=== PATIENT | female | born 1950 | race Caucasian/White ===

== ENCOUNTER 2023-03-09 10:55 | Outpatient (REF) | payer MEDICARE, SELFPAY ==
[2023-03-10 09:19] LABS: HIV AB/AG Nonreactive (Nonreactive); HIV Num 1 0.07 S/CO (0.00-0.99)
== END 2023-03-09 10:56 | disposition home or self-care (01) ==
LOC: HO.LNP 10:55
PROVIDERS: Visit Provider Specialist
DX: Z77.21 Contact with and (suspected) exposure to potentially hazardous body fluids (principal)
CPT/HCPCS: 87389

== ENCOUNTER 2023-09-22 14:49 | Outpatient (REF) | payer MEDICARE, SELFPAY ==
[2023-09-22 15:06] LABS: MANUAL DIFF FLAG NO
[2023-09-22 15:15] LABS: Basophils Percent Auto 0.6 % (0-2); Eosinophils Absolute Auto 0.1 X10*3/uL (0.0-0.4); Eosinophils Percent Auto 2.5 % (0-4); Hematocrit 41.7 % (37.0-47.0); Hemoglobin 13.7 g/dl (12.0-16.0); Imm Gran Abs Auto 0.01 X10*3/uL (0.00-0.03); Imm Gran Pct Auto 0.2 % (0.0-0.4); Lymphocytes Absolute Auto 1.7 X10*3/uL (1.2-4.9); Lymphocytes Percent Auto 32.1 % (20-40); Mean Corpuscular HGB Conc 32.9 g/dl (31.0-35.0); Mean Corpuscular Hemoglobin 29.8 pg (27.0-33.0); Mean Corpuscular Volume 90.8 fL (80.0-98.0); Mean Platelet Volume 9.7 fL (9.4-12.3); Monocytes Absolute Auto 0.3 X10*3/uL (0.1-1.2); Monocytes Percent Auto 5.5 % (2-11); Neutrophils Absolute Auto 3.1 x10*3/uL (2.0-8.3); Neutrophils Percent Auto 59.1 % (45-73); Platelet Count 192 X10*3/uL (160-400); Red Blood Count 4.59 X10*6/uL (4.20-5.50); Red Cell Distribution Width 13.3 % (11.0-16.0); White Blood Count 5.3 X10*3/uL (4.8-10.8)
[2023-09-22 15:52] LABS: Anion Gap 11 (12-20); Blood Urea Nitrogen 21 mg/dL (9-16); Calcium 9.9 mg/dL (8.4-10.2); Carbon Dioxide 32 mmol/L (22-29); Chloride 101 mmol/L (96-108); Estimated Glomerular Filt Rate > 60; Glucose Random 96 mg/dL (60-115); Potassium 4.2 mmol/L (3.3-5.1); Sodium 140 mmol/L (135-145)
[2023-09-22 16:03] LABS: TSH reflex Free T4 2.15 uIU/mL (0.32-4.0)
[2023-09-22 16:14] LABS: Folate 14.2 ng/mL (> or = 4.0); Vitamin B12 1164 pg/mL (200-900)
== END 2023-09-22 14:50 | disposition home or self-care (01) ==
LOC: HO.LAB 14:49
PROVIDERS: PCP Internal Medicine; Visit Provider Psychiatry & Neurology Neurology
DX: G31.84 Mild cognitive impairment of uncertain or unknown etiology (principal)
CPT/HCPCS: 36415; 80048; 82607; 82746; 84443; 85025

== ENCOUNTER 2023-10-28 13:24 | Outpatient (REF) | payer MEDICARE, SELFPAY ==
--- NOTE | ~2023-10-28 | MR_ITS ---
EXAMINATION: MR BRAIN WITHOUT CONTRAST CLINICAL INFORMATION: Mild cognitive impairment COMPARISON: None TECHNIQUE: Multiplanar multisequence MR imaging of the brain was obtained without intravenous contrast. FINDINGS: There is no acute infarct on diffusion-weighted imaging. There is no intracranial hemorrhage on iron-sensitive imaging. No extra-axial collection or mass effect/herniation. Patchy periventricular and deep white matter T2 FLAIR hyperintensities consistent with mild to moderate underlying microangiopathy. Chronic lacunar infarcts involving the nella. Etat crible appearance of the basal ganglia. There is asymmetric prominence of the sulci involving the right parietal lobe and widening of the parieto-occipital fissure with questionable disproportionate right parietal lobe volume loss. No hydrocephalus. Moderate generalized volume loss with commensurate sulcal and ventricular prominence. Bilateral choroid plexus and the granuloma within the lateral ventricular atria The major flow voids at the skull base are preserved. The midline structures are normal. The cerebellar tonsils are normally positioned. The craniocervical junction is normal. Marrow signal is within normal limits. The visualized soft tissues are without significant abnormality. No signal abnormality within the paranasal sinuses or within the mastoid air cells. MR/MR head/brain wo con IMPRESSION: 1. Moderate generalized cerebral volume loss, mild to moderate chronic microangiopathy, and chronic lacunar infarcts in the nella 2. Asymmetric prominence of the right parietal sulci with questionable corresponding disproportionate right parietal lobe volume loss. Electronically signed by: Neville Madrigal MD 11/10/2023 06:48 PM EDT
== END 2023-10-28 13:25 | disposition home or self-care (01) ==
LOC: HO.MRI 13:24
PROVIDERS: PCP Internal Medicine; Visit Provider Psychiatry & Neurology Neurology
DX: G31.84 Mild cognitive impairment of uncertain or unknown etiology (principal)
CPT/HCPCS: 70551

== ENCOUNTER 2023-10-29 08:47 | Day surgery (SDC) | payer MEDICARE, SELFPAY ==
--- NOTE | ~2023-10-29 | FL_ITS ---
FLUOROSCOPIC GUIDED LUMBAR PUNCTURE INDICATION: Cognitive disorder; Alzheimer's. TECHNIQUE: Risks and benefits and possible complications were discussed with the patient and the consent form was signed. Patient was placed prone on the fluoroscopy table. The back was prepped and draped in routine sterile fashion. Betadine was used as a skin antiseptic. Utilizing fluoroscopic guidance, the L3-4 interlaminar space was accessed with a 22 gauge Marcelle spinal needle and clear CSF fluid obtained. 4 cc of fluid was sent for analysis. The needle was removed without immediate complications. Total fluoroscopy time: 1 minute 15 seconds FL/FL guided lumbar puncture LP IMPRESSION: Successful diagnostic fluoroscopic lumbar puncture This procedure was performed by Neville Levine PA-C and supervised by Dr. Blair. Electronically signed by: Christopher Blair MD 10/29/2023 04:18 PM EDT
[2023-10-29 09:01] VITALS: BMI 22.5
[2023-10-29 09:59] VITALS: BP 141/77; PULSE 76; RESP 18; TEMP 36.8; O2SAT 100
[2023-10-29 12:51] VITALS: BP 152/85; PULSE 61; RESP 18; TEMP 36.3; O2SAT 100
== END 2023-10-29 12:55 | disposition home or self-care (01) ==
LOC: HO.SSS 08:48
PROVIDERS: Physician Assistant Surgical; PCP Internal Medicine; Visit Provider Psychiatry & Neurology Neurology
PROC: 009U3ZZ Drainage of Spinal Canal, Percutaneous Approach (ICD-10-PCS; CPT 62270; principal; 2023-10-29 11:00)
DX: G31.84 Mild cognitive impairment of uncertain or unknown etiology (principal); Z82.0 Family history of epilepsy and other diseases of the nervous system; Z85.3 Personal history of malignant neoplasm of breast; E03.9 Hypothyroidism, unspecified; Z79.899 Other long term (current) drug therapy; Z88.0 Allergy status to penicillin; Z87.891 Personal history of nicotine dependence; Z98.890 Other specified postprocedural states
CPT/HCPCS: 62328; 83520; Q9967

== ENCOUNTER → 2023-10-29 11:25 | Outpatient (BNV) | payer MEDICARE, SELFPAY | PROVIDERS: PCP Internal Medicine; Visit Provider Radiology Diagnostic Radiology | DX: G31.84 Mild cognitive impairment of uncertain or unknown etiology (principal) | CPT/HCPCS: 62328 ==

== ENCOUNTER 2023-11-25 10:05 | Outpatient (REF) | payer MEDICARE, SELFPAY | END 2023-11-25 10:06 | disposition home or self-care (01) | LOC: HO.LAB 10:05 | PROVIDERS: PCP Internal Medicine; Visit Provider Psychiatry & Neurology Neurology | DX: G30.9 Alzheimer's disease, unspecified (principal) | CPT/HCPCS: 82542 ==

== ENCOUNTER 2024-05-27 09:33 | Outpatient (REF) | payer MEDICARE, SELFPAY ==
--- NOTE | ~2024-05-27 | MR_ITS ---
EXAMINATION: MR BRAIN WITHOUT CONTRAST CLINICAL INFORMATION: Alzheimer's disease. COMPARISON: 10/28/2023. TECHNIQUE: MRI of the brain was obtained using routine sequences without contrast. Examination performed on a 1.5 Leonie Siemens high-field scanner. FINDINGS: There is no diffusion restriction. There is no intracranial hemorrhage, acute infarction, mass effect, or edema. There is redemonstration of bifrontal, biparietal, and to a lesser degree temporal lobe atrophy. This appears most significant involving the right posterior frontotemporal region, and involving the right parieto-occipital fissure. Commensurate prominence of the lateral and third ventricles. There are bilateral choroid plexus xanthogranulomas. No significant posterior fossa atrophy. No shift of midline. No significant abnormal hemosiderin deposition is identified. There are old lacunar type infarcts within the central and left nella, and the left medial thalamus. Old lacunar infarct in the right mid brambila radiata. There are a scattered punctate and minimally confluent foci of white matter T2 hyperintensity in the periventricular, subcortical, and hemispheric deep white matter. These foci are nonspecific but most likely relate statistically to moderate small vessel ischemic changes. Midline structures appear normally formed. Moderate thinning of the corpus callosum. The pituitary gland appears normal. Posterior fossa structures appear normal. Cerebellar tonsils are appropriately located. Major flow voids are preserved within the skull base. The globes and orbital contents demonstrate no abnormalities. There are bilateral lens replacements. Paranasal sinuses are clear bilaterally. The mastoids and tympanic cavities are normally aerated. Extracranial soft tissues demonstrate no abnormalities. No suspicious bone marrow changes are evident. Atlantoaxial joint is demonstrates mild to moderate degenerative change. MR/MR head/brain wo con IMPRESSION: 1. No evidence of intracranial hemorrhage, acute infarction, mass effect, or edema. 2. There are moderate stable changes of small vessel ischemia, and old lacunar type infarctions within the nella, left thalamus, and right mid brambila radiata. 3. Moderate generalized cerebral volume loss, with more significant bifrontal and biparietal atrophy. This appears unchanged. Electronically signed by: Chrsitopher Blair MD 05/29/2024 01:05 PM EDT
== END 2024-05-27 09:34 | disposition home or self-care (01) ==
LOC: HO.MRI 09:33
PROVIDERS: PCP Internal Medicine; Visit Provider Psychiatry & Neurology Neurology
DX: G30.9 Alzheimer's disease, unspecified (principal)
CPT/HCPCS: 70551

== ENCOUNTER → 2024-05-27 09:48 | Outpatient (BNV) | payer MEDICARE, SELFPAY | PROVIDERS: PCP Internal Medicine; Visit Provider Radiology Diagnostic Radiology | DX: I67.82 Cerebral ischemia (principal); I63.81 Other cerebral infarction due to occlusion or stenosis of small artery; G31.89 Other specified degenerative diseases of nervous system | CPT/HCPCS: 70551 ==

== ENCOUNTER 2024-06-22 18:40 | Outpatient (REF) | payer MEDICARE, SELFPAY ==
--- NOTE | ~2024-06-22 | MR_ITS ---
CLINICAL HISTORY: ALZHEIMER DISEASE MR Brain without gadolinium Comparison: MR/SR - MR HEAD/BRAIN WO CON - 05/27/24 09:48 EDT MR/SR - MR HEAD/BRAIN WO CON - 10/28/23 13:33 EDT Findings: No restricted diffusion. Volume loss most prominent in the temporal lobes. No intra-axial mass or hemorrhage. Periventricular and subcortical T2 white matter hyperintensities likely chronic small-vessel ischemic changes. No midline shift. No hydrocephalus. Vascular flow voids are intact. Orbital contents are unremarkable. The sinuses and mastoid air cells are clear. No focal bone lesion. IMPRESSION: 1. No acute intracranial findings. This document has been electronically signed by: Shania Barnes MD on 06/22/2024 20:44:42
== END 2024-06-22 18:41 | disposition home or self-care (01) ==
LOC: HO.MRI 18:40
PROVIDERS: PCP Internal Medicine; Visit Provider Psychiatry & Neurology Neurology
DX: G30.9 Alzheimer's disease, unspecified (principal)
CPT/HCPCS: 70551

== ENCOUNTER → 2024-06-22 18:52 | Outpatient (BNV) | payer MEDICARE, SELFPAY | PROVIDERS: PCP Internal Medicine; Visit Provider Radiology Diagnostic Radiology | DX: G30.9 Alzheimer's disease, unspecified (principal) | CPT/HCPCS: 70551 ==

== ENCOUNTER 2024-07-19 09:45 | Outpatient (REF) | payer MEDICARE, SELFPAY ==
--- NOTE | ~2024-07-19 | MR_ITS ---
CLINICAL HISTORY: ALZHEIMERS DZ MR Brain without gadolinium Comparison: MR - MR HEAD/BRAIN WO CON - 06/22/24 18:51 EDT Findings: No restricted diffusion. No intra-axial mass or hemorrhage. No midline shift. No hydrocephalus. Vascular flow voids are intact. Diffuse volume loss. Confluent T2 signal prolongation in the periventricular white matter. The orbits are normal. The sinuses and mastoid air cells are clear. No focal bone lesion. IMPRESSION: No acute findings. Diffuse volume loss and moderate white matter disease. This document has been electronically signed by: Herminio Fraga MD on 07/19/2024 14:26:13
--- OUTSIDE RECORDS SUMMARY | 2024-07-19 10:18 | XMS_ITS | Clinical Summary ---
Author Organization [facility] [address] [place] [address] [place] [phone] Phone Care Team Providers Care Ct Mri Technologist Name Role Phone Christa Lynch MD Primary Care Prov ider Allergies Active Allergy Reactions Criticality Noted Date Comments Penicillins 03/17/2006 Medications calcium carbonate 1,500 mg (600 mg elemental calcium) tablet 1 qd Acti ve cholecalciferol (VITAMIN D-3) 50 mcg (2,000 unit) capsule Take?by mouth. Active levothyroxine (SYNTHROID, LEVOTHROID) 75 mcg tablet Take 1 Tab by mouth daily. 04/17/2020 Active GRAPE SEED EXTRACT ORAL Take?by mouth. One tablet twice a day. Active docosahexaenoic acid/epa (FISH OIL ORAL) by Does not apply route. One capsule BID Active ASCORBIC ACID, VITAMIN C, ORAL Take?by mouth. Active vitamin B complex (VITAMINS B COMPLEX ORAL) Take?by mouth 2 Times Daily. Active multivitamin (MULTIPLE VITAMINS ORAL) Take?by mouth. Murray antioxidant?Take 4 tabs daily Active Active Problems Problem Noted Date Diagnosed Date Diagnosis unknown 03/17/2024 Overview (03/17/2024): Sprain and strain of unspecified site of hip and thigh Osteopenia 04/26/2019 Degenerative disc disease, lumbar 02/21/2018 Lumbar foraminal stenosis 02/21/2018 Lumbar radiculopathy 02/21/2018 Somatic dysfunction of pelvic region 11/04/2017 Strain of left hip 11/04/2017 Subclinical hypothyroidism 05/15/2014 Overview (03/17/2024): TSH 8.30, 05/14/2014. Sprain of sacroiliac ligament 07/10/2009 Low back pain 07/03/2009 Overview (03/17/2024): Sciatica x 1 years Immunizations Name Administration Dates Next Due Influenza Quadravalent, MDCK , 0.5ml, with preservative (Flucelvax) 6mo and older 10/29/2016 Influenza trivalent, 0.5mL ( Fluad) 65yo and older 10/21/2021,10/20/2018,11/19/2017 Influenza trivalent, 0.5mL, preservative free (Fluarix; FluLaval; Fluzone) ages 6mo and older (Afluria) 3 years and older 10/30/2015,11/23/2014,01/02/2014,12/20,02/04/2012,11/25/2009 Influenza, Unspecified 12/04/2020,10/05/2019 Moderna SARS-CoV-2 COVID-19, mRNA, LNP-S, preservative free 06/02/2021,12/06/2020 Pneumococcal conjugate 13 va lent (Prevnar 13, PCV13) 2mo and older 10/20/2018 Pneumococcal polysaccharide 23 valent (Pneumovax 23) 2yo and older 10/29/2016 Td Tetanus diptheria (Tdvax) 7yo and older 07/31/2020 Tdap Tetanus diptheria acell ular pertussis (Boostrix; Adacel) 7yo and older 07/03/2009 Zoster recombinant (Shingrix ) 19yo and older 08/07/2021,05/23/2021 Surgical History Surgery Date Site/Laterality Comments OTHER SURGICAL HISTORY PROCEDURE: ORAL SURGERY SINGLE TOOTH OTHER SURGICAL HISTORY PROCEDURE: CA DILATION & CURETTAGE DX&/THER NONOBSTETRIC OTHER SURGICAL HISTORY PROCEDURE: LAPAROSCOPY PROCEDURE NEC CHOLECYSTECTOMY PROCEDURE: CA CHOLECYSTECTOMY COLONOSCOPY 01/03/13 PROCEDURE: HISTORICAL COLONOSCOPY; COMMENT: normal; repeat in 5 yrs with 48 hour bowel prep OTHER SURGICAL HISTORY PROCEDURE: RADICAL REMOVAL OF BREAST; COMMENT: left breast 2011 OTHER SURGICAL HISTORY 12/07/13 PROCEDURE: MAMMOGRAM BREAST BIOPSY 10/2011 Left PROCEDURE: BX BREAST; PERC NEEDLE CORE W/IMAG GUID; COMMENT: DCIS OTHER SURGICAL HISTORY 2011 Left PROCEDURE: CA MASTECTOMY SIMPLE COMPLETE; COMMENT: DCIS Medical History Medical History Date Comments Absence of menstruation DX:Absen ce of menstruation Senile osteoporosis 2006 resolved 2007, now osteopenia, on Evista DX:Senile osteoporosis; COMMENT: T score -1.9, strong family history, on Fosamax Low back pain 07/03/2009 DX:Low back pain Osteoporosis 05/03/2009 DX:Osteoporosis Hx of breast cancer 05/23/2013 DX:Hx of kavya ast cancer H/O mammogram DX:H/O mammogram History of actinic keratoses DX: History of actinic keratoses Personal history of malignan t neoplasm of breast 10/15/2011 DX:Personal history of malignant neoplasm of breast; COMMENT: left breast ca Degenerative disc disease, lumbar 02/21/2018 DX:Degenerative disc disease , lumbar Family History Medical History Relation Name Comments Alzheimer's disease Brother 1 Hyperlipidemia Brother 2 Other: hearing impaired Daughter 1 Lung cancer Father Heart failure Maternal Grandfather Heart failure Maternal Grandmother Other cancer Maternal Grandmother stomach Mental illness Mother dx 62 paranoid schi zophrenia Other: lung disease Mother dx 62 Breast cancer Other mat great aunt Asthma Paternal Grandmother Other: lung disease Paternal Grandmother Breast cancer Sister 1 dx 57 Glaucoma Sister 2 Relation Name Status Comments Brother 1 Alive x3 Brother 2 Alive Daughter 1 Daughter 2 Alive Father Maternal Grandfather Maternal Grandmother Mother dx 62 Other mat great aunt Alive Paternal Grandfather Paternal Grandmother Sister 1 dx 57 Alive x2 Sister 2 Social History Tobacco Use Types Packs/Day Years Used Date Smoking Tobacco: Never Smokeless Tobacco: Never Alcohol Use Standard Drinks/Week Comments Yes 0 (1 standard drink = 0.6 oz pur e alcohol) Comments Unknown Sex and Gender Information Value Date Recorded Sex Assigned at Female 03/27/2024 3:45 PM EST Legal Sex Female 7:52 AM EST Gender Identity Female 03/27/2024 3:45 PM EST Sexual Orientation Straight 03/27/2024 3: 45 PM EST Obstetrics History Last Filed Vital Signs Vital Sign Reading Time Taken Comments Blood Pressure 128/85 07/23/2023 11:04 AM EDT Pulse 59 01/04/2023 9:52 AM EST Temperature - - Respiratory Rate - - Oxygen Saturation - - Inhaled Oxygen Concentration - - Weight 61.7 kg (136 lb) 07/23/2023 11:04 AM EDT Height 165.7 cm (5' 5.25 ) 07/23/2023 11:04 AM E DT Body Mass Index 22.46 07/23/2023 11:04 AM EDT Plan of Treatment Upcoming Encounters Date Type Department Care Team (Late st Contact Info) Description 09/01/2024 1:00 PM EDT Appointment [facility] Bone Density [address] [place] [phone] Health Maintenance Due Date Last Done Comments Colorectal Cancer Screening: Colonoscopy 01/24/2022 01/03/2013 Depression Screening 01/24/2022 Falls Risk Assessment 01/24/2022 Medicare Annual Wellness Visit 01/24/2022 Social Influencers of Health Screening 01/24/2022 COVID-19 Vaccine ( season) 2023 10/21/2021, 06/02/2021, 12/06/2020, Additional history exists Influenza Vaccine (Season Ended) 2024 10/21/2021, 12/04/2020, 10/05/2019, Additional history exists Breast Cancer Screening 06/09/2025 06/10/19 24, 06/10/2023, 05/29/2022, Additional history exists RSV Immunization Adult Patients (1 - 1-dose 75+ series) 2026 DTaP,Tdap,and Td Vaccines (3 - Td or Tdap) 07/31/2030 07/31/2020, 07/03/2009 Osteoporosis Screening (Bone Density Screening) 12/07/2033 12/08/2023, 12/08/2023, 05/12/2022, Additional history exists Hepatitis C Screening Completed 10/30/2015 Pneumococcal Vaccine: 50+ Years Completed 10/20/2018, 10/29/2016 Zoster Vaccines Completed 08/07/2021, 05/23/2021 HIB Vaccines Aged Out No longer eligi ble based on patient's age to complete this topic HPV Vaccines Aged Out No longer eligi ble based on patient's age to complete this topic Hepatitis A Vaccines Aged Out No long er eligible based on patient's age to complete this topic Hepatitis B Vaccines Aged Out No long er eligible based on patient's age to complete this topic IPV Vaccines Aged Out No longer eligi ble based on patient's age to complete this topic MMR Vaccines Aged Out No longer eligi ble based on patient's age to complete this topic Meningococcal ACWY Vaccine Aged Out N o longer eligible based on patient's age to complete this topic Meningococcal B Vaccine Aged Out No l onger eligible based on patient's age to complete this topic RSV Immunization Patients Under 20 months Aged Out No longer eligible based on patient's age to complete this topic Varicella Vaccines Aged Out No longer eligible based on patient's age to complete this topic Procedures Procedure Name Priority Date/Time Associated Diagnosis Comments EXTERNAL MRI REPORT 06/22/2024 EXTERNAL MRI REPORT 06/22/2024 EXTERNAL MRI REPORT 05/27/2024 EXTERNAL MRI REPORT 05/27/2024 DXA BONE DENSITY STUDY 1+ SITS AXIAL SKEL Routine 12/08/2023 2:22 PM EDT Age-related osteoporosis without current pathological fracture SCREENING MAMMOGRAPHY BI 2-VIEW BREAST INC CAD Routine 06/10/2023 10:02 AM EDT Encounter for screening mammogram for malignant neoplasm of breast HEPATITIS C SCREENING Routine 10/30/2015 COLONOSCOPY Routine 01/03/2013 from Last 3 Months or Most Recently Relevant to Health Maintenance Results * External MRI Report (06/22/2024) Only the most recent of4 resultswithin the time period is included. Anatomical Region Laterality Modality Magnetic Resonan ce us Provider [facility] IMG MRI PROCEDURES Final Result * DXA BONE DENSITY STUDY 1+ SITS AXIAL SKEL (12/08/2023 2:22 PM EDT) Anatomical Region Laterality Modality Bone Densitometr y 11/30/2023 10:0 4 AM EDT Narrative 12/08/2023 3:11 PM EDT BONE DENSITY ? Lumbar Spine T-score is -1.2 ?? (SD relative to 20-29 y/o adult) Z-score is +0.2 ??(SD relative to age matched peers) This is consistent with osteopenia by criteria defined by the WHO. Left Hip T-score is -2.2 Z-score is -0.2 This is consistent with osteopenia by criteria defined by the WHO. Comparison exam(s): significant increase in bone density of ??lumbar spine when compared to most recent bone density examination ?? Confidence level is +/-95%. Impression: Based on the World Health Organization criteria, Bibiana Easley should be classified as having osteopenia. [facility] Department of Internal Medicine recommends using National Osteoporosis Foundation (NOF) guidelines in treatment decisions related to osteoporosis. NOF guidelines suggest considering treatment for postmenopausal women and men aged 50 or older presenting with the following: History of hip or vertebral fracture. T-score less than or equal to -2.5 (DXA) at the femoral neck, total hip, or spine, after appropriate evaluation to exclude secondary causes. Low bone mass (T-score between -1.0 and -2.5 at the femoral neck or spine) AND a 10-year probability of a hip fracture greater than or equal to 3% OR a 10-year probability of a major osteoporosis-related fracture greater than or equal to 20% based on the [place]-adapted WHO algorithm Please note that all treatment decisions require clinical judgment and consideration of individual patient factors, including patient preferences, co-morbidities, previous drug use, risk factors not captured in the FRAX model (e.g., frailty, falls, vitamin D deficiency, increased bone turnover, interval significant decline in bone density) and possible under- or over-estimation of fracture risk by FRAX. Procedure Note Shalini Mccormick MD - 01/10/2024 BONE DENSITY Lumbar Spine T-score is -1.2 (SD relative to 20-29 y/o adult) Z-score is +0.2 (SD relative to age matched peers) This is consistent with osteopenia by criteria defined by the WHO. Left Hip T-score is -2.2 Z-score is -0.2 This is consistent with osteopenia by criteria defined by the WHO. Comparison exam(s): significant increase in bone density of lumbar spinewhen compared to most recent bone density examination Confidence level is +/-95%. Impression: Based on the World Health Organization criteria, Bibiana Easley should beclassified as having osteopenia. [facility] Department of Internal Medicine recommendsusing National Osteoporosis Foundation (NOF) guidelines in treatmentdecisions related to osteoporosis. NOF guidelines suggest consideringtreatment for postmenopausal women and men aged 50 or older presentingwith the following: History of hip or vertebral fracture. T-score less than or equal to -2.5 (DXA) at the femoral neck, total hip,or spine, after appropriate evaluation to exclude secondary causes. Low bone mass (T-score between -1.0 and -2.5 at the femoral neck or spine)AND a 10-year probability of a hip fracture greater than or equal to 3% ORa 10-year probability of a major osteoporosis-related fracture greaterthan or equal to 20% based on the [place]-adapted WHO algorithm Please note that all treatment decisions require clinical judgment andconsideration of individual patient factors, including patientpreferences, co-morbidities, previous drug use, risk factors not capturedin the FRAX model (e.g., frailty, falls, vitamin D deficiency, increasedbone turnover, interval significant decline in bone density) and possibleunder- or over-estimation of fracture risk by FRAX. us Christa Lynch MD IMG DXA PROCEDURES Final Result * SCREENING MAMMOGRAPHY BI 2-VIEW BREAST INC CAD (06/10/2023 10:02 AM EDT) Anatomical Region Laterality Modality Radiographic Fela ging 05/29/2022 10:2 4 AM EDT Narrative 06/10/2023 6:28 PM EDT This is a summary report. The complete report is available in the patient's medical record. If you cannot access the medical record, please contact the sending organization for a detailed fax or copy. Full field digital screening 2D C views and tomosynthesis right breast mammography, reviewed with CAD and compared to previous. ??Patient has a history of left mastectomy. ??The breast is composed of fatty and fibroglandular tissue. ??No suspicious mass, architectural distortion or suspicious calcifications are identified. IMPRESSION: : No mammographic evidence of malignancy. BIRADS 1-Negative; N. 5 year breast cancer risk assessment N/A Lifetime breast cancer risk assessment N/A Breast cancer risk category Breast cancer risk not assessed Procedure Note Shalini Mccormick MD - 10/04/2023 This is a summary report. The complete report is available in thepatient's medical record. If you cannot access the medical record, pleasecontact the sending organization for a detailed fax or copy. Full field digital screening 2D C views and tomosynthesis right breastmammography, reviewed with CAD and compared to previous. Patient has ahistory of left mastectomy. The breast is composed of fatty andfibroglandular tissue. No suspicious mass, architectural distortion orsuspicious calcifications are identified. IMPRESSION: : No mammographic evidence of malignancy. BIRADS 1-Negative; N. 5 year breast cancer risk assessment N/A Lifetime breast cancer risk assessment N/A Breast cancer risk category Breast cancer risk not assessed Result [facility] Mihaela Alfred MD IMG XR PROCEDURES Final Resu lt * Hepatitis C Screening (10/30/2015) Pathologist [facility] Hepatitis C Screening Abstracted Historical Provider HEALTH MAINTENANCE Final Result * Colonoscopy (01/03/2013) Pathologist [facility] Colonoscopy No interpreta tion,abstr acted Anatomical Region Laterality Modality Other Historical Provider HEALTH MAINTENANCE Final Result from Last 3 Months or Most Recently Relevant to Health Maintenance Insurance [employer] - [place] MEDICARE ADVANTAGE Care Teams Ct Mri Technologist Relationship Specialty Start Date End Date Christa Lynch MD [address] [place] [id number] PCP - General 03/29/10
== END 2024-07-19 09:46 | disposition home or self-care (01) ==
LOC: HO.MRI 09:45
PROVIDERS: PCP Internal Medicine; Visit Provider Registered Nurse
DX: G30.9 Alzheimer's disease, unspecified (principal)
CPT/HCPCS: 70551

== ENCOUNTER → 2024-07-19 10:14 | Outpatient (BNV) | payer MEDICARE, SELFPAY | PROVIDERS: PCP Internal Medicine; Visit Provider Radiology Vascular & Interventional Radiology | DX: G31.89 Other specified degenerative diseases of nervous system (principal); R90.82 White matter disease, unspecified | CPT/HCPCS: 70551 ==

== ENCOUNTER 2024-10-08 09:37 | Outpatient (REF) | payer MEDICARE, SELFPAY ==
--- NOTE | ~2024-10-08 | MR_ITS ---
CLINICAL HISTORY: G30.9 - Alzheimers disease, unspecified --- Additional Notes or Special Instructions: on Kisunla, prior to 7th infusion (scheduled 10 17 24) per protocol MR Brain without gadolinium Comparison: MR - MR HEAD/BRAIN WO CON - 07/19/24 10:13 EDT Findings: No restricted diffusion. No intra-axial mass or hemorrhage. Age appropriate cerebral volume loss. Patchy high FLAIR signal within the periventricular and subcortical white matter. Small chronic infarct within the left and central nella. No midline shift. No hydrocephalus. Vascular flow voids are intact. The orbits are normal. The sinuses and mastoid air cells are clear. No focal bone lesion. IMPRESSION: Unremarkable brain MRI. This document has been electronically signed by: Taz Walton MD on 10/09/2024 15:51:53
--- OUTSIDE RECORDS SUMMARY | 2024-10-08 09:48 | XMS_ITS ---
[facility] Name [facility] Organization [facility] Care Team Organization Name Specialty Phone Email Start Date End Da te [facility] PARESH HORNE Primary Care 12/23/2021 10/04/2023
== END 2024-10-08 09:38 | disposition home or self-care (01) ==
LOC: HO.MRI 09:37
PROVIDERS: Visit Provider Registered Nurse
DX: G30.9 Alzheimer's disease, unspecified (principal); F02.80 Dementia in other diseases classified elsewhere, unspecified severity, without behavioral disturbance, psychotic disturbance, mood disturbance, and anxiety
CPT/HCPCS: 70551

== ENCOUNTER → 2024-10-08 09:38 | Outpatient (BNV) | payer MEDICARE, SELFPAY | PROVIDERS: Visit Provider Radiology Diagnostic Radiology | DX: G30.9 Alzheimer's disease, unspecified (principal) | CPT/HCPCS: 70551 ==

== ENCOUNTER 2024-11-29 11:14 | Outpatient (AMB) | payer MEDICARE, SELFPAY ==
--- NOTE | 2024-11-29 11:50 | MHC.OFFVIS ---
Intake Visit Reasons: AD Allergies Penicillins Allergy (Verified 10/29/23 09:31) Rash HPI Comments Details: She has been feeling fine and has had 3 titrating 350mg , 700mg, 1050mg inhusions, and 5 full infusions at 1400 mg with last one on 11/14/24. Her 10/09/24 MRI stable and unremarkable.? No side effects or problems. Stable cognitive issues in last 4 months. Some days she feels very clear. Short term memory is still not good. No worsening. PET scan 11/20/24 showed extensive increased uptake in the cerebrum and cerebellum. No [facility] [place] score was provided on the report.? Less nervous. She first started? noticing some cognitive issues where she gets stuck for words since 2022, and some short-term memory problems and repeating herself. Her CAT scan shows mild frontotemporal and parietal atrophy and white matter disease involving the right nella, probably representing a small lacunar infarct. The ventricles are on also somewhat enlarged. She has no problems with her gait or bladder control problems. [facility] Medical History (Updated 11/29/24 @ 12:08 by Sukumar Craig MD) Hx of breast cancer History of hyperthyroidism Surgical History (Updated 10/29/23 @ 09:45 by Hilda Cantor RN) History of dental surgery Hx of cataract extraction History of reconstruction of left breast Hx of left mastectomy Hx laparoscopic cholecystectomy Hx of dilation and curettage Hx of colonoscopy Social History Are you a primary family day care worker to a significant other at home: No Do you presently have visiting nurse or other home services: No Patient Tobacco Use Status: Former Tobacco user Review of Systems Const Details: ?General/Constitutional:? Change in appetitedenies.? Chillsdenies.? Fatiguedenies.? Feverdenies.? Weight gaindenies.? Weight lossdenies. ???Sleep:? Difficulty getting to sleepdenies.? Difficulty maintaining sleepdenies?.? Urge to move legsdenies.? Teeth grindingdenies.? Shouting or Kicking during sleepdenies.? Abnormal behavior during sleepdenies.? Excessive sleepdenies.? Snoringdenies.? Daytime sleepinessdenies. ???Respiratory:? Shortness of breathdenies.? Chest paindenies.? Coughdenies. ???Cardiovascular:? Chest pain at restdenies.? Chest pain with exertiondenies.? Claudicationdenies.? Dizzinessdenies.? Fluid accumulation in the legsdenies.? Irregular heartbeatdenies.? Palpitationsdenies. ???Gastrointestinal:? Abdominal paindenies.? Constipationdenies.? Diarrheadenies.? Difficulty swallowingdenies.? Heartburndenies.? Nauseadenies.? Rectal bleedingdenies. ???Genitourinary:? Frequent urinationdenies.? Urgencydenies.? Incontinencedenies.? Erectile Dysfunctiondenies. ???Musculoskeletal:? Neck paindenies.? Back paindenies.? Muscle achesdenies.? Painful jointsdenies.? Sciaticadenies.? Weaknessdenies. ???Neurologic:? Difficulty swallowingdenies.? Balance difficultydenies.? Coordinationnormal.? Difficulty speakingdenies.? Dizzinessdenies.? Faintingdenies.? Gait abnormalitydenies.? Headachedenies.? Loss of strengthdenies.? Loss of use of extremitydenies.? Low back paindenies.? Memory lossadmits.? Seizuresdenies.? Ticsdenies.? Tingling/Numbnessdenies.? Transient loss of visiondenies.? Tremordenies. ???Psychiatric:? Anxietydenies.? Auditory/visual hallucinationsdenies.? Delusionsdenies.? Depressed mooddenies.? Stressorsdenies.? Substance abusedenies.? Suicidal thoughtsdenies. Physical Exam Neuro Other: Neurological: Abnormal neurological findings:??MMSE 27/30, MoCA 19/30 with MIS 6/15, Functional Activities Questionnaires 10.?Mental Status:??alert and oriented X 3 except day,?Normal attention,? and affect.?Cranial Nerves:??Pupils are equal, round and reactive to light. Fundoscopy shows normal disc bilaterally. External occular muscles are intact. Visual mendoza are full, no ptosis. Face is symmetrical, no facial weakness or droop. Facial sensations are normal. Tongue protrudes in midline. Palate elevates symmetrically. Shoulder shrugging is normal..?Motor Examination:??Normal muscle tone, bulk and strength,?No atrophy or fasciculations,?No drift of the extended upper extremities,?Deep tendon reflexes are 2+?,?Plantars are flexor?.?Straight Leg Raising:??90 degrees.?Sensory Exam:??Normal light touch, temperature, pinprick, vibration and joint-position sensations?,?Rhomberg sign is absent.?Coordination:??no ataxia,?no titubation,?ciiqvs-hl-[id number], cfkm-[id number] test and rapid alternating movements were normal.?Gait Exam:??Within normal limits.?Cerebellar Signs:??[id number]-[id number] and gfiw-[id number] is normal,?no dysdiadochokinesia?.?Extrapyramidal System:??No tremor, rigidity with normal facial expressions,?No bradykinesia, no bradyphrenia. Normal arm swing and posture. No propulsion or retropulsion.?Speech:??Normal,?no dysphasia or dysarthria..? Assessment & Plan Assessment & Plan (1) Alzheimers disease: Code(s): G30.9 - Alzheimer's disease, unspecified; F02.80 - Dementia in other diseases classified elsewhere, unspecified severity, without behavioral disturbance, psychotic disturbance, mood disturbance, and anxiety Category: Medical Plan Continue Kisunla fusions 1400 mg every month. Follow-up PET scan will be done in June Coding Level of Care Code Est Pt Level 5 (85244) Diagnoses Alzheimers disease G30.9; F02.80
== END 2024-11-29 12:19 | disposition home or self-care (01) ==
LOC: HO.HSM 11:15
PROVIDERS: PCP Internal Medicine; Referring Provider Internal Medicine; Visit Provider Psychiatry & Neurology Neurology
DX: G30.9 Alzheimer's disease, unspecified (principal); F02.80 Dementia in other diseases classified elsewhere, unspecified severity, without behavioral disturbance, psychotic disturbance, mood disturbance, and anxiety
CPT/HCPCS: 99214

== ENCOUNTER → 2024-11-29 11:14 | Outpatient (BNVA) | payer MEDICARE, SELFPAY | PROVIDERS: PCP Internal Medicine; Referring Provider Internal Medicine; Visit Provider Psychiatry & Neurology Neurology | DX: G30.9 Alzheimer's disease, unspecified (principal); F02.80 Dementia in other diseases classified elsewhere, unspecified severity, without behavioral disturbance, psychotic disturbance, mood disturbance, and anxiety | CPT/HCPCS: 99212 ==

== ENCOUNTER 2025-01-26 10:27 | Outpatient (AMB) | payer MEDICARE, SELFPAY ==
--- NOTE | 2025-01-26 10:33 | A.OFFVIS_ITS ---
Intake Visit Reasons: Repeat MMSE, MOCA Allergies Penicillins Allergy (Verified 10/29/23 09:31) Rash HPI Comments Details: 75-year-old woman with Alzheimer's dementia treated with Kisunla since 04/2024. She is here today for cognitive testing with MMSE and MoCA. [facility] Medical History (Updated 01/24/25 @ 10:01 by MUNA Gonzales) Hx of breast cancer History of hyperthyroidism Surgical History (Updated 10/29/23 @ 09:45 by Hilda Cantor RN) History of dental surgery Hx of cataract extraction History of reconstruction of left breast Hx of left mastectomy Hx laparoscopic cholecystectomy Hx of dilation and curettage Hx of colonoscopy Social History Are you a primary transitional care nurse to a significant other at home: No Do you presently have visiting nurse or other home services: No Patient Tobacco Use Status: Former Tobacco user Review of Systems Const Denies chills, Denies daytime sleepiness, Denies difficulty sleeping, Denies fatigue, Denies fever(s), Denies frequent falls, Denies headache(s), Denies increased appetite, Denies poor appetite, Denies snoring, Denies weakness, Denies weight gain and Denies weight loss Eyes Denies loss of vision ENT Denies vertigo, Denies dizziness, Denies headache(s) and Denies neck pain Card Denies chest pain at rest, Denies chest pain with activity, Denies syncope, Denies leg edema, Denies palpitations, Denies dyspnea and Denies dyspnea on exertion Resp Denies cough, Denies dyspnea, Denies dyspnea on exertion and Denies snoring GI Denies abdominal pain, Denies constipation, Denies heartburn, Denies diarrhea and Denies nausea Denies urinary frequency, Denies urinary incontinence and Denies urinary urgency Musc Denies abnormal gait, Denies back pain, Denies myalgias, Denies arthralgias, Denies neck pain, Denies numbness and Denies tingling Neuro Denies abnormal gait, Denies vertigo, Denies dizziness, Denies syncope, Denies frequent falls, Denies headache(s), Denies lack of coordination, Denies loss of vision, Reports memory loss, Denies numbness, Denies Other visual disturbances, Denies restless legs, Denies seizure-like activity, Denies tingling, Denies paresthesias, Denies tremor(s) and Denies weakness Psych Denies anxiety, Denies depression, Denies auditory hallucinations, Reports memory loss and Denies visual hallucinations Endo Denies fatigue and Denies palpitations Physical Exam Const Other: General Appearance:? normal, in no acute distress. Psych:? alert, cooperative with exam. Neuro Other: Abnormal Neurological Findings:?MMSE 27/30, MoCA 18/30 with MIS 3/15. (Previous on 01/28/2024 - MMSE 27/30, MoCA 19/30 with MIS 6/30) Mental Status: alert. Cranial Nerves: Pupils are equal, round, and reactive to light. External ocular muscles are intact. Visual mendoza are full, no ptosis. Face is symmetrical, no facial weakness or droop. Facial sensations are normal. Tongue protrudes in midline. Palate elevates symmetrically. Shoulder shrugging is normal. Coordination: No ataxia. No titubation. Gait Exam: Within normal limits. Extrapyramidal System: No tremor, rigidity with normal facial expressions. No bradykinesia. No bradyphrenia. Normal arm swing and posture. No propulsion or retropulsion. Speech: Normal. N Assessment & Plan Assessment & Plan (1) Alzheimers disease: Code(s): G30.9 - Alzheimer's disease, unspecified; F02.80 - Dementia in other diseases classified elsewhere, unspecified severity, without behavioral disturbance, psychotic disturbance, mood disturbance, and anxiety Category: Medical Plan Continue current treatment. Follow up with Dr. Craig as previously scheduled or sooner as needed. Coding Level of Care Code Est Pt Level 3 (04485) Diagnoses Alzheimers disease G30.9; F02.80
== END 2025-01-26 11:46 | disposition home or self-care (01) ==
LOC: HO.HSM 10:27
PROVIDERS: PCP Internal Medicine; Visit Provider Registered Nurse
DX: G30.9 Alzheimer's disease, unspecified (principal); F02.80 Dementia in other diseases classified elsewhere, unspecified severity, without behavioral disturbance, psychotic disturbance, mood disturbance, and anxiety
CPT/HCPCS: 99213

== ENCOUNTER → 2025-01-26 10:27 | Outpatient (BNVA) | payer MEDICARE, SELFPAY | PROVIDERS: PCP Internal Medicine; Visit Provider Registered Nurse | DX: G30.9 Alzheimer's disease, unspecified (principal); F02.80 Dementia in other diseases classified elsewhere, unspecified severity, without behavioral disturbance, psychotic disturbance, mood disturbance, and anxiety | CPT/HCPCS: 99212 ==